=== PATIENT | female | born 1985 | race Caucasian/White ===

== ENCOUNTER 2019-12-07 02:56 | Emergency (ER) | payer OTHER ==
[~2019-12-07] VITALS: Ht 170.2 cm; Wt 71.2 kg
[2019-12-07 03:06] VITALS: Ht 170.2 cm; Wt 71.2 kg
[2019-12-07 03:45] LABS: BASOPHIL % 0.5 % (0-2); PLATELET COUNT 148 x10^3mcL (130-400)
[2019-12-07 04:48] LABS: microscopic required? YES; urine erythrocyte 2+ (NEGATIVE)
[2019-12-07 06:37] VITALS: BP 91/47
== END 2019-12-07 06:37 | disposition home or self-care (01) ==
LOC: ED 02:56
PROVIDERS: Emergency Medicine
DX: O26.891 Other specified pregnancy related conditions, first trimester (principal); N93.9 Abnormal uterine and vaginal bleeding, unspecified; Z3A.11 11 weeks gestation of pregnancy
CPT/HCPCS: 36415; Q0092